=== PATIENT | female | born 1995 | race Caucasian/White ===

== ENCOUNTER 2016-12-23 12:56 | Emergency (ER) | payer SELFPAY ==
[~2016-12-23] VITALS: Ht 157.5 cm; Wt 56.0 kg
[2016-12-23 12:58] VITALS: BP 128/89; PULSE 130; RESP 20; TEMP 97.8; O2SAT 99
[2016-12-23] MEDS ORDERED: AZIT500T2 PO (16:25)
[2016-12-23] MEDS ORDERED: PERC5TAB12 PO (16:47)
--- NOTE | 2016-12-23 16:47 | PD ---
HPI . 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 She states that her problems all started about a week ago when she was diagnosed with a urinary tract infection. She states that she has seen her doctor in [place]. She states that he did not do a pelvic exam. The diagnosis was made based upon a urine sample. She states that he subsequently diagnosed her with bacterial vaginosis. She was given medication for that. Yesterday, she developed lesions consistent with herpes. She called her doctor in [place] and was given a prescription for an antiviral. She does not have anything to take for the pain. The pain is severe. Pain is exacerbated by touch. No relieving factor. She has tried Tylenol. PFSH Past Medical History Medical History: Denies Significant Hx Diminished Hearing: No ?: Not LMP: 12/03/16 Past Surgical History Surgical History: No Previous Surgery Social History Alcohol Use: Yes (occ) Tobacco Use: No Substance Use: No Allergies-Medications (Allergen,Severity, Reaction): Coded Allergies: No Known Allergies (Unverified , 12/23/16) Reported Meds & Prescriptions Reported Meds & Active Scripts Active Reported Azithromycin 500 Mg Tab 500 Mg PO DAILY Review of Systems Except as stated in HPI: all other systems reviewed are Neg Genitourinary: Positive: Other (genital pain and lesions) Physical Exam Narrative GENERAL: Awake and alert and in no acute distress. SKIN: Warm and dry. HEAD: Atraumatic. Normocephalic. EYES: Pupils equal and round. NECK: Trachea midline. CARDIOVASCULAR: Regular rate and rhythm. RESPIRATORY: No accessory muscle use. : She has vesicular lesions on the external genitalia compatible with gentle herpes. I did not attempt a speculum or bimanual examination. MUSCULOSKELETAL: No obvious deformities. No edema. NEUROLOGICAL: Awake and alert. No obvious cranial nerve deficits. Motor grossly within normal limits. Normal speech. PSYCHIATRIC: Appropriate mood and affect; insight and judgment normal. Data Data Last Documented VS Vital Signs Date Time Temp Pulse Resp B/P Pulse Ox O2 Delivery O2 Flow Rate FiO2 12/23/16 12:58 97.8 130 20 128/89 99 Room Air MDM Medical Decision Making Medical Screen Exam Complete: Yes Emergency Medical Condition: Yes Differential Diagnosis Differential diagnosis of vaginal discharge includes but is not limited to physiologic discharge, yeast infection, bacterial vaginosis, sexually transmitted disease. Narrative Course This patient presents with pain secondary to genital herpes. She was started on an antiviral yesterday. I will add Percocet for pain. Diagnosis Primary Impression: Genital herpes Qualified Code: A60.04 - Herpes simplex vulvovaginitis Patient Instructions: General Instructions, Genital Herpes Simplex (DC) Med/Other Pt SpecificInfo: Prescription(s) given Scripts Oxycodone-Acetaminophen (Percocet)5-325 mg Tab1 Tab PO Q4H PRN (PAIN) #12 TAB Ref 0 Prov:Rose Cote MD 12/23/16 Disposition: 01 DISCHARGE HOME Condition: Stable Rose Cote MD Dec 23, 2016 16:47
== END 2016-12-23 17:04 | disposition home or self-care (01) ==
LOC: NEPD 12:56
DX: A60.00 Herpesviral infection of urogenital system, unspecified (principal); Z79.899 Other long term (current) drug therapy
CPT/HCPCS: 99283

== ENCOUNTER 2017-01-05 13:51 | Emergency (ER) | payer OTHER ==
[~2017-01-05] VITALS: Ht 157.5 cm; Wt 55.0 kg
[~2017-01-05 13:51] MED LIST: AZIT500T2 PO; PERC5TAB12 PO
[2017-01-05 13:53] VITALS: BP 134/89; PULSE 93; RESP 16; TEMP 98.2; O2SAT 98
--- NOTE | 2017-01-05 15:44 | PD ---
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 She's had this for a couple of days. She also has some discomfort to the coccygeal region. She states she had a outbreak of herpes 3 weeks ago treated with acyclovir. He states the pain started at that time it has persisted. She's had some "sensitivity" in both lower extremities as well. Patient denies urinary symptoms, or abdominal pain. She has no CVA tenderness, fever, nausea, vomiting, or diarrhea. No active rash at this time. Patient is unsure if she could be . She has no known drug allergies. PFSH Past Medical History Diminished Hearing: No Genitourinary: Yes (HERPES) ?: Unknown LMP: 12/16 Social History Alcohol Use: Yes (occ) Tobacco Use: No Substance Use: No Allergies-Medications (Allergen,Severity, Reaction): Coded Allergies: No Known Allergies (Unverified , 12/23/16) Reported Meds & Prescriptions Reported Meds & Active Scripts Active Review of Systems Genitourinary: Positive: Discharge, No: Urgency, Frequency, Dysuria, Pelvic Pain, Flank Pain Physical Exam Narrative GENERAL: Patient appears no acute distress. SKIN: Warm and dry. Normal color. Normal turgor. HEAD: Atraumatic. Normocephalic. EYES: Pupils equal and round. No scleral icterus. No injection or drainage. ENT: No nasal bleeding or discharge. Mucous membranes pink and moist. Pharynx is clear. NECK: Trachea midline. Supple. CARDIOVASCULAR: Regular rate and rhythm. RESPIRATORY: No accessory muscle use. Clear to auscultation. Breath sounds equal bilaterally. GASTROINTESTINAL: Abdomen soft, non-tender, nondistended. Hepatic and splenic margins not palpable. No CVA tenderness. 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 Exam of the coccygeal region shows no obvious lesions and generalized tenderness with palpation. No signs of abscess or cellulitis. MUSCULOSKELETAL: Extremities without clubbing, cyanosis, or edema. No obvious deformities. NEUROLOGICAL: Awake and alert. No obvious cranial nerve deficits. Motor grossly within normal limits. Five out of 5 muscle strength in the arms and legs. Normal speech. PSYCHIATRIC: Appropriate mood and affect; insight and judgment normal. Data Data Last Documented VS Vital Signs Date Time Temp Pulse Resp B/P Pulse Ox O2 Delivery O2 Flow Rate FiO2 01/05/17 13:53 98.2 93 16 134/89 98 Orders Urinalysis - C+S If Indicated (01/05/17 14:25) Labs Laboratory Tests Test 01/05/17 14:53 Urine Color YELLOW Urine Turbidity CLEAR Urine pH 6.5 Urine Specific [place]ell 1.018 Urine Protein NEG mg/dL Urine Glucose (UA) NEG mg/dL Urine Ketones NEG mg/dL Urine Occult Blood NEG Urine Nitrite NEG Urine Bilirubin NEG Urine Urobilinogen LESS THAN 2.0 MG/DL Urine Leukocyte Esterase TRACE Urine RBC 1 /hpf Urine WBC 1 /hpf Urine Squamous Epithelial 4 /hpf Cells Urine Mucus FEW /lpf Microscopic Urinalysis Comment CULT NOT INDICATED MDM Medical Decision Making Medical Screen Exam Complete: Yes Emergency Medical Condition: Yes Differential Diagnosis Vaginal Candidiasis. Coccygeal pain. Possible postherpetic neuralgia. Narrative Course Urinalysis is normal. Patient is not . Patient will be treated with Diflucan 150 mg one now and repeat in one week if necessary. Patient was started on gabapentin 100 mg twice a day for her tailbone pain. She is given #30. Patient is to follow local primary care physician as discussed. Diagnosis Primary Impression: Vaginal candidiasis Additional Impression: Postherpetic neuralgia Referrals: [facility] Patient Instructions: General Instructions, Vulvovaginal Candidiasis (ED) Additional Instructions: Urinalysis is normal. Patient is not . Patient will be treated with Diflucan 150 mg one now and repeat in one week if necessary. Patient was started on gabapentin 100 mg twice a day for her tailbone pain. She is given #30. Patient is to follow local primary care physician as discussed. Med/Other Pt SpecificInfo: Prescription(s) given Disposition: 01 DISCHARGE HOME Condition: Stable Eduardo Okeefe Jan 05, 2017 15:44
[2017-01-05 15:49] LABS: BLOOD, URINE NEG (NEG); COMMENT (UR) CULT NOT INDICATED; CULTURE IF INDICATED CULT NOT INDICATED; GLUCOSE,URINE NEG (NEG); KETONE, URINE NEG (NEG); MUCUS URINE FEW /lpf (OCC); NITRITE,URINE NEG (NEG); PH, URINE 6.5 (5.0-8.5); SQUAMOUS EPITHELIAL CELL URINE 4 /hpf (0-5); URINE COLOR YELLOW (YELLW/STRAW)
[2017-01-05] MEDS ORDERED: GABA100C4 PO (16:13)
[2017-01-05] MEDS ORDERED: DIFL150T PO (16:13)
== END 2017-01-05 16:19 | disposition home or self-care (01) ==
LOC: NEPD 13:51
DX: B37.3 Candidiasis of vulva and vagina (principal); B02.29 Other postherpetic nervous system involvement; B00.9 Herpesviral infection, unspecified
CPT/HCPCS: 81001; 99283